=== PATIENT | female | born 1965 | race Caucasian/White ===

== ENCOUNTER 2016-11-20 19:31 | Emergency (ER) | payer MEDICAID ==
[~2016-11-20] VITALS: Ht 162.6 cm; Wt 53.3 kg
[~2016-11-20 19:31] MED LIST: SULF1TAB3 PO
[2016-11-20 19:32] VITALS: BP 114/79
== END 2016-11-20 20:24 | disposition home or self-care (01) ==
LOC: ED 20:18
DX: L03.211 Cellulitis of face (principal); J45.909 Unspecified asthma, uncomplicated; Z86.14 Personal history of Methicillin resistant Staphylococcus aureus infection
CPT/HCPCS: 99283

== ENCOUNTER 2017-07-30 | Emergency (ER) | payer MEDICAID ==
[~2017-07-30] VITALS: Ht 162.6 cm; Wt 51.2 kg
[~2017-07-30] MED LIST changes: +SULF-169 PO; -SULF1TAB3 PO
[2017-07-30] MEDS ORDERED: ACETAMINOPHEN 500 MG TABLET ONE (00:42)
[2017-07-30] MEDS ORDERED: ALBUTEROL/IPRATROPIUM 2.5MG/0.5MG, 3 ML ONE (00:51)
[2017-07-30] MEDS ORDERED: SODIUM CHLORIDE 0.9% 1,000ML IVBOLUS ONE (01:00)
[2017-07-30] MEDS ORDERED: ACETAMINOPHEN 500 MG TABLET PO ONE (01:00)
[2017-07-30] MEDS ORDERED: DEXAMETHASONE 4 MG/ML, 1ML IVPush ONE (01:00)
[2017-07-30] MEDS ORDERED: ALBUTEROL/IPRATROPIUM 2.5MG/0.5MG, 3 ML NPPB ONE (01:00)
[2017-07-30] MEDS ORDERED: SODIUM CHLORIDE FLUSH 10ML SYR IVF ONE (01:00)
[2017-07-30] MEDS ORDERED: DEXAMETHASONE 4 MG/ML, 5ML ONE (01:12)
[2017-07-30 01:19] VITALS: BP 100/64
[2017-07-30 01:21] LABS: MEAN CORPUSCULAR HEMOGLOBIN 30.5 pg (27.0-34.8); MEAN CORPUSCULAR HGB CONC 34.1 g/dL (32.4-35.8); MEAN CORPUSCULAR VOLUME 89.6 fL (80-100); MEAN PLATELET VOLUME 8.7 fL (7.4-10.4); PLATELET COUNT 216 x10^3/uL (130-400); RED BLOOD COUNT 4.54 x10^6/uL (3.82-5.3); RED CELL DISTRIBUTION WIDTH 12.1 % (9.6-15.2)
[2017-07-30 01:34] LABS: ALBUMIN 3.1 g/dL (3.4-5.0); ANION GAP 10 mmol/L (5-15); CALCIUM 8.2 mg/dL (8.5-10.1); CHLORIDE 100 mmol/L (98-107); CREATININE 0.85 mg/dL (0.55-1.02)
[2017-07-30 01:40] LABS: BASOPHILS # (AUTO) 0.04 x10^3/uL (0-0.1); BASOPHILS % (AUTO) 0 % (0-1); EOSINOPHILS # (AUTO) 0.01 x10^3/uL (0-0.4); EOSINOPHILS % (AUTO) 0 % (1-7); LYMPHOCYTES # (AUTO) 2.24 x10^3/uL (1-3.4); LYMPHOCYTES % (AUTO) 16 % (22-44); MD SCAN; MONOCYTES # (AUTO) 1.51 x10^3/uL (0.2-0.8); MONOCYTES % (AUTO) 11 % (2-9); NEUTROPHILS # (AUTO) 10.31 x10^3/uL (1.8-6.8); NEUTROPHILS % (AUTO) 73 % (42-75)
== END 2017-07-30 02:15 | disposition home or self-care (01) ==
LOC: ED 01:20
DX: J44.1 Chronic obstructive pulmonary disease with (acute) exacerbation (principal); F17.210 Nicotine dependence, cigarettes, uncomplicated; Z88.1 Allergy status to other antibiotic agents
CPT/HCPCS: 36415; 71045; 80048; 82040; 85025; 93005; 94640; 96361; 96374; 99285; J1100; J7030; J7620